=== PATIENT | male | born 1970 | race African-American/Black ===

== ENCOUNTER 2019-09-12 20:40 | Inpatient (IN) | payer MEDICAID ==
[~2019-09-12] VITALS: Ht 177.8 cm; Wt 121.1 kg
[2019-09-12] MEDS ORDERED: SODIUM CHLORIDE 0.9% 1,000 ML IV ONE (21:22)
[2019-09-12] MEDS ORDERED: KETOROLAC 30MG/ML VIAL IV STA (21:22)
[2019-09-12] MEDS ORDERED: ONDANSETRON HCL 4MG/2ML INJ IV STA ×2 (21:22→23:48)
[2019-09-12 22:56] LABS: BASOPHILS % 0.5 % (0.0-2.0); EOSINOPHILS % 4.6 % (0.0-5.0); HEMATOCRIT. 35.8 % (42.0-52.0); LYMPHOCYTES % 30.7 % (20.0-50.0); MEAN CORPUSCULAR HEMOGLOBIN 33.1 pg (28.0-32.0); MEAN CORPUSCULAR VOLUME 98.6 fL (80.0-94.0); MEAN PLATELET VOLUME 8.3 fl (7.4-10.4); MONOCYTES % 11.6 % (2.0-8.0); NEUTROPHILS % 52.6 % (40.0-76.0); PLATELET 272 x1000/uL (130-400); RED BLOOD CELL COUNT 3.63 mill/uL (4.7-6.1); RED CELL DISTRIBUTION WIDTH 14.7 % (11.6-14.6)
[2019-09-12 23:00] LABS: CHLORIDE 108 mEq/L (98-107)
[2019-09-12 23:02] LABS: INR 1.1; PROTHROMBIN TIME 10.9 sec (9.6-11.0)
[2019-09-12 23:27] LABS: CLARITY URINE TURBID (CLEAR); COLOR URINE DARK YELLOW (YELLOW); KETONES URINE NEGATIVE (NEGATIVE); LEUKOCYTE ESTERASE URINE 3+ (NEGATIVE); NITRITE URINE POSITIVE (NEGATIVE); OCCULT BLOOD URINE 3+ (NEGATIVE); PROTEIN URINE 2+ (NEGATIVE); SPECIFIC GRAVITY URINE 1.016 (1.005-1.030)
[2019-09-12] MEDS ORDERED: PIPERACILLIN/TAZ 3.375G PREMIX 50 ML IV ONE (23:30)
[2019-09-12] MEDS ORDERED: VANCOMYCIN 1 G PREMIX 200 ML IV ONE (23:30)
[2019-09-12] MEDS ORDERED: MORPHINE SULFATE 4 MG/ML CPJ (NOT FOR IM USE) IV STA (23:48)
[2019-09-13] MEDS ORDERED: DIPHENHYDRAMINE 25MG CAPSULE PO ONE
[2019-09-13] MEDS ORDERED: DIPHENHYDRAMINE 25MG CAPSULE PO PRN (04:15)
[2019-09-13] MEDS: MORPHINE SULFATE 4 MG/ML CPJ (NOT FOR IM USE) IV PRN ×4 (04:21→23:49)
[2019-09-13 08:00] VITALS: BP 135/95
[2019-09-13 09:14] VITALS: BP 135/95
[2019-09-13] MEDS: DIPHENHYDRAMINE 50MG/ML VIAL IV SCH ×2 (11:01→17:33)
[2019-09-13] MEDS ORDERED: ONDANSETRON HCL 4MG/2ML INJ IV PRN (11:15)
[2019-09-13] MEDS: DEXT 5%/0.45% NACL 1000ML 1,000 ML IV SCH (12:10)
[2019-09-13] MEDS: FAMOTIDINE 20MG/2ML VIAL IV SCH (12:10)
[2019-09-13 16:00] VITALS: BP 159/98
[2019-09-13 17:30] LABS: HEMATOCRIT 35.4 % (42.0-52.0); HEMOGLOBIN 12.2 g/dL (14.0-18.0); MEAN CORPUSCULAR HEMOGLOBIN 34.2 pg (28.0-32.0); MEAN CORPUSCULAR VOLUME 99.4 fL (80.0-94.0); PLATELET 269 x1000/uL (130-400); RED BLOOD CELL COUNT 3.56 mill/uL (4.7-6.1); RED CELL DISTRIBUTION WIDTH 14.5 % (11.6-14.6)
[2019-09-13 17:32] LABS: CHLORIDE 108 mEq/L (98-107)
[2019-09-13] MEDS: BUPROPION HCL 100MG SR TABLET PO SCH (17:32)
[2019-09-13] MEDS: CEFTRIAXONE 1 G PREMIX 50 ML IV SCH (18:41)
[2019-09-13] MEDS: QUETIAPINE FUMARATE 50MG TABLET PO SCH (21:00)
[2019-09-13] MEDS ORDERED: BUPROPION HCL 100MG TABLET PO SCH (21:00)
[2019-09-13] MEDS: DIPHENHYDRAMINE 50MG/ML VIAL IV PRN (23:48)
[2019-09-14 04:00] VITALS: BP 138/92
[2019-09-14] MEDS: DIPHENHYDRAMINE 50MG/ML VIAL IV PRN ×3 (06:11→18:44)
[2019-09-14] MEDS: MORPHINE SULFATE 4 MG/ML CPJ (NOT FOR IM USE) IV PRN ×3 (06:12→18:40)
[2019-09-14 08:00] VITALS: BP 107/52
[2019-09-14] MEDS: BUPROPION HCL 100MG SR TABLET PO SCH ×2 (09:01→17:17)
[2019-09-14] MEDS: FAMOTIDINE 20MG/2ML VIAL IV SCH (09:01)
[2019-09-14 12:00] VITALS: BP 133/93
[2019-09-14] MEDS ORDERED: VANCOMYCIN 2,000 MG in DEXT 5% WATER 500 ML IV SCH (16:00)
[2019-09-14 20:00] VITALS: BP 139/77
[2019-09-14] MEDS: QUETIAPINE FUMARATE 50MG TABLET PO SCH (21:00)
[2019-09-14] MEDS: CEFTRIAXONE 1 G PREMIX 50 ML IV SCH (21:09)
[2019-09-14] MEDS: DEXT 5%/0.45% NACL 1000ML 1,000 ML IV SCH (21:09)
[2019-09-14] MEDS: VANCOMYCIN 1 G PREMIX 200 ML IV SCH (23:00)
[2019-09-15] VITALS: BP 140/92
[2019-09-15] MEDS: DIPHENHYDRAMINE 50MG/ML VIAL IV PRN ×4 (00:34→20:01)
[2019-09-15] MEDS: MORPHINE SULFATE 4 MG/ML CPJ (NOT FOR IM USE) IV PRN ×3 (00:34→12:50)
[2019-09-15 04:00] VITALS: BP 132/77
[2019-09-15] MEDS: VANCOMYCIN 1 G PREMIX 200 ML IV SCH ×3 (06:43→22:08)
[2019-09-15 08:00] VITALS: BP 114/66
[2019-09-15] MEDS: BUPROPION HCL 100MG SR TABLET PO SCH ×2 (09:36→17:08)
[2019-09-15] MEDS: FAMOTIDINE 20MG/2ML VIAL IV SCH (09:36)
[2019-09-15 12:00] VITALS: BP 134/101
[2019-09-15] MEDS ORDERED: SODIUM BICARBONATE 4% (2.4MEQ) 5ML VIAL IV ONE (12:45)
[2019-09-15] MEDS ORDERED: LIDOCAINE HCL 1% 20ML VIAL (Pyxis) INJ ONE (12:45)
[2019-09-15 16:00] VITALS: BP 124/76
[2019-09-15] MEDS ORDERED: CLONIDINE 0.1MG TABLET PO PRN (16:00)
[2019-09-15] MEDS ORDERED: LORAZEPAM 2MG/ML CPJ IV PRN (16:00)
[2019-09-15] MEDS: MORPHINE SULFATE 2 MG/ML CPJ (NOT FOR IM USE) IV PRN ×2 (16:12→22:09)
[2019-09-15 17:04] LABS: BASOPHILS % 0.5 % (0.0-2.0); EOSINOPHILS % 6.5 % (0.0-5.0); HEMATOCRIT. 33.1 % (42.0-52.0); HEMOGLOBIN. 10.9 g/dL (14.0-18.0); LYMPHOCYTES % 29.2 % (20.0-50.0); MEAN CORPUSCULAR HEMOGLOBIN 32.9 pg (28.0-32.0); MEAN CORPUSCULAR VOLUME 99.9 fL (80.0-94.0); MONOCYTES % 10.7 % (2.0-8.0); NEUTROPHILS % 53.1 % (40.0-76.0); PLATELET 244 x1000/uL (130-400); RED BLOOD CELL COUNT 3.31 mill/uL (4.7-6.1); RED CELL DISTRIBUTION WIDTH 13.9 % (11.6-14.6)
[2019-09-15 17:20] LABS: CHLORIDE 109 mEq/L (98-107)
[2019-09-15 17:30] LABS: VANCOMYCIN TROUGH 4.1 ug/mL (5.0-10.0)
[2019-09-15] MEDS: CEFTRIAXONE 1 G PREMIX 50 ML IV SCH (18:09)
[2019-09-15 20:00] VITALS: BP 156/75
[2019-09-15] MEDS: QUETIAPINE FUMARATE 50MG TABLET PO SCH (20:01)
[2019-09-15] MEDS: DEXT 5%/0.45% NACL 1000ML 1,000 ML IV SCH (20:02)
[2019-09-16] VITALS: BP 135/72
[2019-09-16 04:00] VITALS: BP 134/89
[2019-09-16] MEDS: DIPHENHYDRAMINE 50MG/ML VIAL IV PRN ×4 (04:34→23:37)
[2019-09-16] MEDS: MORPHINE SULFATE 2 MG/ML CPJ (NOT FOR IM USE) IV PRN ×4 (04:39→23:47)
[2019-09-16] MEDS: VANCOMYCIN 1 G PREMIX 200 ML IV SCH (05:15)
[2019-09-16 08:00] VITALS: BP 114/71
[2019-09-16] MEDS: FAMOTIDINE 20MG/2ML VIAL IV SCH (09:00)
[2019-09-16] MEDS: BUPROPION HCL 100MG SR TABLET PO SCH ×2 (09:01→17:13)
[2019-09-16 10:05] LABS: *COCAINE SCREEN URINE NEGATIVE (NEGATIVE); METHADONE URINE SCREEN NEGATIVE (NEGATIVE)
[2019-09-16 10:06] LABS: OPIATES URINE SCREEN PRESUMTIVE POSITIVE (NEGATIVE); PHENCYCLIDINE URINE SCREEN NEGATIVE (NEGATIVE)
[2019-09-16 10:09] LABS: *AMPHETAMINES SCREEN URINE NEGATIVE (NEGATIVE); *BARBITURATES SCREEN URINE NEGATIVE (NEGATIVE); *BENZODIAZEPINES SCREEN URINE NEGATIVE (NEGATIVE); CANNABINOID URINE SCREEN PRESUMTIVE POSITIVE (NEGATIVE)
[2019-09-16 11:08] LABS: BASOPHILS % 0.4 % (0.0-2.0); EOSINOPHILS % 5.2 % (0.0-5.0); HEMATOCRIT. 33.4 % (42.0-52.0); HEMOGLOBIN. 11.1 g/dL (14.0-18.0); LYMPHOCYTES % 21.5 % (20.0-50.0); MEAN CORPUSCULAR HEMOGLOBIN 33.3 pg (28.0-32.0); MEAN CORPUSCULAR VOLUME 99.8 fL (80.0-94.0); MEAN PLATELET VOLUME 9.1 fl (7.4-10.4); MONOCYTES % 7.3 % (2.0-8.0); NEUTROPHILS % 65.6 % (40.0-76.0); PLATELET 251 x1000/uL (130-400); RED BLOOD CELL COUNT 3.35 mill/uL (4.7-6.1); RED CELL DISTRIBUTION WIDTH 14.3 % (11.6-14.6)
[2019-09-16 11:13] LABS: CHLORIDE 109 mEq/L (98-107)
[2019-09-16 11:23] LABS: LDL CHOLESTEROL 71 mg/dL (5-100)
[2019-09-16 11:25] LABS: HDL CHOLESTEROL 35 mg/dL (40-59); T4 FREE 1.15 ng/dL (0.76-1.46)
[2019-09-16] MEDS: VANCOMYCIN 1,750 MG in DEXT 5% WATER 500 ML IV SCH ×2 (13:43→21:53)
[2019-09-16 16:00] VITALS: BP 110/59
[2019-09-16] MEDS: CEFTRIAXONE 1 G PREMIX 50 ML IV SCH (18:09)
[2019-09-16 20:00] VITALS: BP 123/81
[2019-09-16] MEDS: QUETIAPINE FUMARATE 50MG TABLET PO SCH (21:50)
[2019-09-17] VITALS: BP 103/66
[2019-09-17 04:00] VITALS: BP 106/64
[2019-09-17] MEDS: VANCOMYCIN 1,750 MG in DEXT 5% WATER 500 ML IV SCH ×3 (04:36→21:46)
[2019-09-17] MEDS: DIPHENHYDRAMINE 50MG/ML VIAL IV PRN ×3 (05:58→18:04)
[2019-09-17] MEDS: MORPHINE SULFATE 2 MG/ML CPJ (NOT FOR IM USE) IV PRN ×3 (05:58→18:05)
[2019-09-17 08:00] VITALS: BP 88/58
[2019-09-17 08:14] LABS: BASOPHILS % 0.4 % (0.0-2.0); HEMATOCRIT. 33.4 % (42.0-52.0); HEMOGLOBIN. 11.4 g/dL (14.0-18.0); LYMPHOCYTES % 31.6 % (20.0-50.0); MEAN CORPUSCULAR HEMOGLOBIN 33.8 pg (28.0-32.0); MEAN CORPUSCULAR VOLUME 99.2 fL (80.0-94.0); MEAN PLATELET VOLUME 9.5 fl (7.4-10.4); MONOCYTES % 14.3 % (2.0-8.0); NEUTROPHILS % 47.7 % (40.0-76.0); PLATELET 224 x1000/uL (130-400); RED BLOOD CELL COUNT 3.36 mill/uL (4.7-6.1); RED CELL DISTRIBUTION WIDTH 14.2 % (11.6-14.6)
[2019-09-17 08:26] LABS: CHLORIDE 108 mEq/L (98-107)
[2019-09-17] MEDS: BUPROPION HCL 100MG SR TABLET PO SCH ×2 (09:36→17:46)
[2019-09-17] MEDS: FAMOTIDINE 20MG TABLET PO SCH ×2 (09:36→21:46)
[2019-09-17 12:00] VITALS: BP 104/60
[2019-09-17 16:00] VITALS: BP 135/84
[2019-09-17] MEDS ORDERED: VANCOMYCIN 2,000 MG in DEXT 5% WATER 500 ML IV SCH (17:00)
[2019-09-17] MEDS: CEFTRIAXONE 1 G PREMIX 50 ML IV SCH (17:47)
[2019-09-17] MEDS ORDERED: VANCOMYCIN 1,750 MG in DEXT 5% WATER 500 ML IV SCH (18:00)
[2019-09-17 20:00] VITALS: BP 112/65
[2019-09-17] MEDS: QUETIAPINE FUMARATE 50MG TABLET PO SCH (21:46)
[2019-09-18] VITALS: BP 114/63
[2019-09-18] MEDS: MORPHINE SULFATE 2 MG/ML CPJ (NOT FOR IM USE) IV PRN ×4 (00:24→19:58)
[2019-09-18] MEDS: DIPHENHYDRAMINE 50MG/ML VIAL IV PRN ×4 (00:24→19:58)
[2019-09-18 04:00] VITALS: BP 100/62
[2019-09-18] MEDS: FAMOTIDINE 20MG TABLET PO SCH ×2 (09:42→21:41)
[2019-09-18] MEDS: BUPROPION HCL 100MG SR TABLET PO SCH ×2 (09:42→17:00)
[2019-09-18] MEDS: VANCOMYCIN 1,750 MG in DEXT 5% WATER 500 ML IV SCH (15:25)
[2019-09-18 20:00] VITALS: BP 151/77
[2019-09-18] MEDS: QUETIAPINE FUMARATE 50MG TABLET PO SCH (21:41)
[2019-09-18] MEDS: CEFTRIAXONE 1 G PREMIX 50 ML IV SCH (21:41)
[2019-09-19] VITALS: BP 126/76
[2019-09-19] MEDS: DIPHENHYDRAMINE 50MG/ML VIAL IV PRN ×2 (02:02→08:13)
[2019-09-19] MEDS: MORPHINE SULFATE 2 MG/ML CPJ (NOT FOR IM USE) IV PRN ×2 (02:03→08:14)
[2019-09-19 03:59] VITALS: BP 124/72
[2019-09-19] MEDS: BUPROPION HCL 100MG SR TABLET PO SCH (08:13)
[2019-09-19] MEDS: FAMOTIDINE 20MG TABLET PO SCH (08:13)
[2019-09-19 08:14] VITALS: BP 124/72
[2019-09-19] MEDS ORDERED: INFLUENZA VIRUS VACCINE(AFLURIA) 0.5ML SYR IM ONE (12:15)
== END 2019-09-19 12:22 | disposition home or self-care (01) | DRG 720 ==
LOC: ER 21:01 → 6EST 09-13 00:19 → EDBEDREQSVC 09-13 00:24 → EDBEDREQ 09-13 00:24 → EDBEDREQTM 09-13 00:24 → ENRESERV 09-13 07:26 → 6EST 09-13 10:25
PROVIDERS: ADMIT Internal Medicine; ATTEND Internal Medicine
PROC: 02HV33Z Insertion of Infusion Device into Superior Vena Cava, Percutaneous Approach (ICD-10-PCS; principal; 2019-09-15)
PROC: B548ZZA Ultrasonography of Superior Vena Cava, Guidance (ICD-10-PCS; 2019-09-15)
PROC: B5181ZA Fluoroscopy of Superior Vena Cava using Low Osmolar Contrast, Guidance (ICD-10-PCS; 2019-09-15)
DX: A41.89 Other specified sepsis (principal); E27.8 Other specified disorders of adrenal gland; F11.20 Opioid dependence, uncomplicated; K50.90 Crohn's disease, unspecified, without complications; B96.20 Unspecified Escherichia coli [E. coli] as the cause of diseases classified elsewhere; D64.9 Anemia, unspecified; E86.0 Dehydration; E87.6 Hypokalemia; F32.9 Major depressive disorder, single episode, unspecified; F64.9 Gender identity disorder, unspecified; G89.29 Other chronic pain; I10 Essential (primary) hypertension; E66.9 Obesity, unspecified; N30.00 Acute cystitis without hematuria; Z91.19 Patient's noncompliance with other medical treatment and regimen; Z68.38 Body mass index [BMI] 38.0-38.9, adult; Z88.5 Allergy status to narcotic agent; Z88.8 Allergy status to other drugs, medicaments and biological substances
CPT/HCPCS: 36415; 36573; 71045; 74176; 76937; 80048; 80061; 80202; 80305; 81003; 82270; 83036; 84145; 84439; 84443; 85027; 87015; 87045; 87077; 87186; 87427; 87449; 87493; 89055; 90686; 93306; 99285; C1725; C1769; J0696; J1200; J1885; J2270; J2405; J2543; J3370; J3490; J7030; J7060; Q0163

== ENCOUNTER 2019-10-25 03:59 | Emergency (ER) | payer MEDICAID ==
[~2019-10-25] VITALS: Ht 182.9 cm; Wt 104.0 kg
[2019-10-25] MEDS ORDERED: ONDANSETRON HCL 4MG/2ML INJ IV STA ×2 (07:38→11:49)
[2019-10-25] MEDS: SODIUM CHLORIDE 0.9% 1,000 ML IV ONE ×2 (07:38→09:16)
[2019-10-25] MEDS ORDERED: KETOROLAC 30MG/ML VIAL IV STA (07:38)
[2019-10-25 08:56] LABS: BASOPHILS % 0.6 % (0.0-2.0); EOSINOPHILS % 1.4 % (0.0-5.0); HEMATOCRIT. 37.6 % (42.0-52.0); HEMOGLOBIN. 12.5 g/dL (14.0-18.0); LYMPHOCYTES % 24.2 % (20.0-50.0); MEAN CORPUSCULAR HEMOGLOBIN 33.2 pg (28.0-32.0); MEAN CORPUSCULAR VOLUME 99.7 fL (80.0-94.0); MEAN PLATELET VOLUME 8.5 fl (7.4-10.4); MONOCYTES % 8.9 % (2.0-8.0); NEUTROPHILS % 64.9 % (40.0-76.0); PLATELET 286 x1000/uL (130-400); RED BLOOD CELL COUNT 3.77 mill/uL (4.7-6.1); RED CELL DISTRIBUTION WIDTH 14.5 % (11.6-14.6)
[2019-10-25 09:04] LABS: CHLORIDE 106 mEq/L (98-107)
[2019-10-25 09:08] LABS: ETHANOL BLOOD < 10 mg/dL
[2019-10-25 11:05] LABS: KETONES URINE NEGATIVE (NEGATIVE); LEUKOCYTE ESTERASE URINE 2+ (NEGATIVE); NITRITE URINE NEGATIVE (NEGATIVE); OCCULT BLOOD URINE 3+ (NEGATIVE); PROTEIN URINE 2+ (NEGATIVE); SPECIFIC GRAVITY URINE 1.015 (1.005-1.030)
[2019-10-25 11:09] LABS: CLARITY URINE TURBID (CLEAR); COLOR URINE BLOODY (YELLOW)
[2019-10-25 11:11] LABS: *AMPHETAMINES SCREEN URINE NEGATIVE (NEGATIVE); *BARBITURATES SCREEN URINE NEGATIVE (NEGATIVE); CANNABINOID URINE SCREEN PRESUMTIVE POSITIVE (NEGATIVE); METHADONE URINE SCREEN NEGATIVE (NEGATIVE); OPIATES URINE SCREEN NEGATIVE (NEGATIVE); PHENCYCLIDINE URINE SCREEN NEGATIVE (NEGATIVE)
[2019-10-25 11:12] LABS: *BENZODIAZEPINES SCREEN URINE NEGATIVE (NEGATIVE); *COCAINE SCREEN URINE PRESUMTIVE POSITIVE (NEGATIVE)
[2019-10-25] MEDS ORDERED: MORPHINE SULFATE 4 MG/ML CPJ (NOT FOR IM USE) IV STA (11:49)
[2019-10-25] MEDS ORDERED: DIPHENHYDRAMINE 25MG CAPSULE PO ONE (12:00)
[2019-10-25] MEDS ORDERED: CEFTRIAXONE 1 G PREMIX 50 ML IV ONE (12:45)
[2019-10-25 15:55] VITALS: BP 100/73
== END 2019-10-25 16:18 | disposition short-term general hospital (02) ==
LOC: ER 03:59
DX: K52.9 Noninfective gastroenteritis and colitis, unspecified (principal); I10 Essential (primary) hypertension; Z88.5 Allergy status to narcotic agent; Z88.8 Allergy status to other drugs, medicaments and biological substances
CPT/HCPCS: 36415; 74176; 80053; 80305; 80320; 81003; 83605; 83690; 84153; 85025; 86850; 86900; 86901; 87040; 87077; 87086; 87186; 96361; 96365; 96375; 96376; 99285; J0696; J1885; J2270; J2405; J7030; Q0163; Z7610; G0103; G0480